=== PATIENT | female | born 1955 | race Caucasian/White ===

== ENCOUNTER 2023-12-24 11:53 | Outpatient (CLI) | payer MEDICARE, SELFPAY ==
--- NOTE | ~2023-12-24 | XR_ITS ---
Left Knee Technique: AP, lateral, and sunrise views were obtained. Clinical History: Pain Findings: No fracture or dislocation is seen. Osseous alignment is anatomic. Minimal patellar spurrin g noted. Soft tissues are unremarkable. No joint effusion is seen. Impression: Minimal patellar spurring. Reviewed, dictated and finalized at location . [employer] PRESIDENT Impression: Minimal patellar spurring.
== END 2023-12-24 11:54 | disposition home or self-care (01) ==
LOC: CHSIMG 12:00
PROVIDERS: PCP Internal Medicine; Visit Provider Internal Medicine
DX: M25.562 Pain in left knee (principal); M76.52 Patellar tendinitis, left knee
CPT/HCPCS: 73562